=== PATIENT | male | born 1990 | race Hispanic/Latino ===

== ENCOUNTER 2024-07-11 16:11 | Emergency (ER) | payer SELFPAY ==
[2024-07-11 16:19] VITALS: BP 142/75
--- NOTE | 2024-07-11 18:14 | ED.MUSCINJ ---
HPI-Injury
General
Chief Complaint: Musculo-Skeletal Complaint
Source: patient
Exam Limitations: none
Time Seen by Provider: 07/11/24 18:04
History of Present Illness-Injury
Initial Injury comments:
33 year old male presents with laceration to right index finger laceration he sustained today while at work. He was using a leaf blower and the fan blade for the leaf blower cut his finger. Last tetanus vaccine was 3 years ago. No other
complaints at this time
Phy Exam
Physical Exam
Physical Exam:
General: Well-appearing male no acute respiratory distress
Skin: Multiple superficial avulsions over the distal portion of the right index finger. They measure about a centimeter at most. These are superficial. No bony or tendon involvement.
Musculoskeletal exam: Good range of motion all joints right index finger
Neurologic: Good sensation right index finger
Vascular: brisk refill tip of right index finger
MDM/Problems Addressed
Differential Diagnosis Includes:
Multiple avulsion injuries to the right distal index finger. These are superficial without bony or tendon involvement. No indication for any sutures at this time. The wound was cleansed with saline and dressed with antibacterial admin and a gauze
wrap. Wound care instructions were given. stable for discharge.
*Critical Care Note
Total Time (30-74mins, 75-104mins- exclusive of procedures): Not Applicable
ED Attending Note
-
Portions of this chart may have been created with voice recognition software.� Occasional wrong word or��sound alike� substitutions may have occurred due to the inherent limitations of voice recognition software.
Discharge Plan
Departure
Patient Disposition: Home (Routine Discharge)
Date of Disposition: 07/11/24
Time of Disposition: 18:17
Patient with high blood pressure during this ER visit?: No
Discharge Problem:
Laceration
Instructions: Wound Care ED
Referrals:
NONE,* [Family Provider] -
Activity Restrictions/Additional Instructions:
Change dressing daily. Apply antibacterial Michelle daily. You may use ibuprofen or Tylenol for pain. As discussed his wound does not warrant any sutures and has to heal on its own.
Interventions
Interventions:
*General Assessment Last Done: 07/11/24 16:19
Discharge Date and Time
Print Language: [place]
[2024-07-11 18:31] VITALS: BP 140/80
== END 2024-07-11 18:34 | disposition home or self-care (01) ==
LOC: EMR 16:11
PROVIDERS: EMERGENCY PHYSICIAN Emergency Medicine
DX: S61.210A Laceration without foreign body of right index finger without damage to nail, initial encounter (principal); W29.3XXA Contact with powered garden and outdoor hand tools and machinery, initial encounter; Y99.0 Civilian activity done for income or pay
CPT/HCPCS: 99282